=== PATIENT | female | born 1960 | race Caucasian/White ===

== ENCOUNTER → 2019-01-15 | Outpatient (CLI) | payer BC ==
[2015-10-13 10:30] VITALS: BP 144/75
[~2019-01-15] MED LIST: AMLO5TAB10 PO; CALC-128 PO; CARV25TA2 PO; CLON1PAT2 TD; HYDR-2868 PO; LETR2.5T PO
--- NOTE | 2019-01-15 15:04 | RAD ---
CT HEAD WO CONTRAST Indication: HEADACHE,DIZZINESS Exposure: One or more of the following individualized dose reduction techniques were utilized for this examination: 1. Automated exposure control 2. Adjustment of the mA and/or kV according to patient size 3. Use of iterative reconstruction technique. Technique: Standard imaging without intravenous contrast. No evidence of acute intracranial hemorrhage, mass effect, midline shift or abnormal extra-axial fluid collection. Ferrara-white matter distinction is maintained. Ventricles and sulci are symmetric. Partially visualized sinuses are clear. Partially visualized orbits appear unremarkable. IMPRESSION: No evidence of acute intracranial hemorrhage or mass effect. Electronically signed by: Curt Loera MD (01/15/2019 3:01 PM) [id number]
== END | disposition home or self-care (01) ==
LOC: CT 14:38
PROVIDERS: ATTEND Family Medicine
DX: R51 Headache (principal); R42 Dizziness and giddiness
CPT/HCPCS: 70450